=== PATIENT | female | born 1955 | race Caucasian/White ===

== ENCOUNTER → 2019-10-11 13:21 | Outpatient (CLI) | payer BC, OTHER, MEDICAID, SELFPAY ==
--- NOTE | 2019-10-11 | DI.CT.S_ITS ---
1PROCEDURE: CT CERVICAL SPINE WO CON INDICATIONS: Pseudarthrosis after fusion or arthrodesis TECHNIQUE: Noncontrast 3 mm thick sections acquired from the skull base to the T4 level. Sagittal and coronal reformats were then constructed. For radiation dose reduction, the following was used: automated exposure control, adjustment of mA and/or kV according to patient size. COMPARISON: None. FINDINGS: Image quality: Excellent. Bones: No fractures or dislocations. Visualized superior ribs are intact. Postoperative changes are seen, with anterior fixation hardware at the C3-C4 level and anterior fixation hardware at C6-C7. At the C7 level, the hardware is proud, with the left-sided screw mildly retracted. There is mild lucency seen surrounding the right C7 screw. Disc spacers are seen at C3-C4, C4-C5, C5-C6, and C6-C7. There is partial fusion of several facet joints. No acute fractures are seen. S-shaped cervicothoracic scoliotic curvature is seen. Soft tissues: Prevertebral soft tissues are normal in thickness. No paravertebral hematomas. No apical pneumothoraces. IMPRESSION: At C7, the left screw appears mildly retracted and the right screw demonstrates mild lucency surrounding it. The hardware is proud at the C7 level. The extensive hardware and fusion changes otherwise are unremarkable. Mild S-shaped cervicothoracic scoliotic curvature. Dictated by: Tereso Schneider M.D. on 10/11/2019 at 13:38 Approved by: Tereso Schneider M.D. on 10/11/2019 at 13:41
== END ==
PROVIDERS: PCP Naprapath; Referring Provider Naprapath; Visit Provider Orthopaedic Surgery
DX: M96.0 Pseudarthrosis after fusion or arthrodesis (principal)
CPT/HCPCS: 72125

== ENCOUNTER → 2019-12-12 11:59 | Outpatient (CLI) | payer BC, OTHER, MEDICAID, SELFPAY ==
[2019-12-13 09:41] LABS: COVID19 Sendout Not Detected (Not Detect)
== END ==
PROVIDERS: PCP Naprapath; Visit Provider Physician Assistant
DX: Z11.59 Encounter for screening for other viral diseases (principal)
CPT/HCPCS: 87635

== ENCOUNTER 2019-12-15 10:32 | Inpatient (IN) | payer BC, OTHER, MEDICAID, SELFPAY ==
[2019-12-13 14:01] VITALS: BMI 25.9
[2019-12-15] VITALS (21 sets, daily range): BP systolic 101–140; BP diastolic 53–86; PULSE 50–89; RESP 10–72; TEMP 35.8–36.7; O2SAT 20–99; BMI 26.0
--- NOTE | 2019-12-15 | DI.RAD.S_ITS ---
PROCEDURE: XR CERVICAL SPINE 4V OR 5V INDICATIONS: C7-T1 ACDF TECHNIQUE: Multiple intraoperative fluoroscopic views of the cervical spine acquired. COMPARISON: None. FINDINGS: Bones: Multiple intraoperative fluoroscopic views demonstrate ACDF from C7-T1. IMPRESSION: Intraoperative views of ACDF at C7-T1 Dictated by: Frances Rainey M.D. on 12/15/2019 at 16:03 Approved by: Frances Rainey M.D. on 12/15/2019 at 16:04
[2019-12-15] MEDS: LACTATED RINGERS 1,000 ML 42 ML IV ×3 (11:05→17:15)
--- NOTE | 2019-12-15 11:05 | PM.PREOP ---
Pre-operative Note COVID-19 COVID-19 status: Negative Result date/Date tested (Pos, Neg/Pending): 12/12/19 Interval Note History & Physical reviewed/Exam performed by Physician: Yes Changes to H&P: No
--- NOTE | 2019-12-15 11:35 | PM.OP.1 ---
Operative Date/Time/Diagnoses Date of procedure: 12/15/19 Time of procedure: 16:04 Pre-op diagnosis: Cervical stenosis with radiculopathy C6-7 pseudarthrosis Post-op diagnosis: same Procedure & Clinicians Procedure: C6-7 and C7-T1 left-sided foraminotomies C6-7 and C7-T1 instrumented posterior fusion C6-7 anterior plate removal C7-T1 ACDF with cage Iliac crest bone graft aspirate Use of microscope Same procedure as scheduled: Yes Indications: [age] year old female with intractable pain from stenosis and a nonunion. They had failed conservative management and requested operative intervention. Risks and benefits of surgery were discussed and appropriate consents were obtained. Surgeon: Alejandro Adams Forklift Truck Operator: Maria C Rosas Anesthesia Type: General Operative Notes Findings: None Closure Type: primary Specimen(s): none sent Prosthetic devices, grafts, tissues, transplants, or devices: [place] Cavus posterior screw/cage Lina INGE-C Applied: catheter Estimated Blood Loss (mL): 20 Procedure in detail: The patient was brought to the operating room and intubated on the stretcher. Time-out was performed. There were then rolled over to the well-padded prone position on chest rolls. Two views of fluoroscopy were taken to confirm our positioning. The neck was then prepped and draped in the standard sterile fashion. Preoperative antibiotics were given. Using fluoroscopy, we localized for planned incisions. Two small 8 mm vertical incisions were made over the lateral masses approximately 2 fingers below our planned surgical site. We then spread down and opened up the fascia. Then percutaneously placed our Steinmann pin through the soft tissue into the facet joint at C6-7 under fluoroscopic visualization. We used the reamer to decorticate the lateral masses compromising the facet. A trocar was placed over the Steinmann pin into the facet and then the pin was removed. We used a rasp to decorticate the facet joint itself. We then filled the DTrax cage with Primagen bone graft and impacted it into the facet joint at C6-7 under fluoroscopic guidance. We then took the lateral mass screw and placed it through the cage and then into the lateral mass for the posterior screw fixation. The amphibian crewmember was removed and we packed more bone graft down the trocar covering the lateral mass. This was done bilaterally. This completed the instrumented posterior fusion at C6-7. We then went to the next level at C7-T1. The same procedure was performed with preparation, placement of the cage with bone graft, and placement of the screw for bilateral instrumented posterior fusion at C7-T1. Due to the massive size of the left facet osteophytes at this level, the spacer appeared much more posterior on x-ray than the 1 on the right side but was still well within bone. We then expanded our left-sided incision to 3 cm in length. We used dilators under fluoroscopic guidance and then placed our NuVasive maxis retractor and opened it up. We placed a retractor in confirmed our positioning at C6-7. We brought in the microscope. A left-sided keyhole foraminotomy was performed at C6-7 using a combination of bur and curettes and #1 Kerrisons. We undermined the facet and lateral mass until we could easily pass a nerve hook along the nerve root and out laterally without resistance. We could directly visualize the cage and was in good lateral far mass position. This completed the foraminotomy. We then moved our retractor inferiorly to C7-T1. We directly visualized the cage and it was in a good position. We removed a large amount of the posterior facet on the medial aspect. Again we performed a keyhole foraminotomy on the left at C7-T1 until we could easily pass a nerve hook along the nerve root without resistance. The wounds were irrigated. The fascia was closed. The superficial tissue was closed and the skin was closed. Sterile dressing was placed. The patient was then rolled over to the table in the supine position and positioned for the anterior surgery. The arms were tucked and a shoulder roll was placed. The neck and left iliac crest were prepped and draped in the standard sterile fashion. Her previous right-sided incision was too high to be able to get to the lower levels the thought would be that is going on the opposite side so as not to leave a denervated space between the 2 incisions. A 3 cm oblique incision was made on the left side of the neck along the skin fold. Bovie was used to split the platysma. We then bluntly dissected a standard anterolateral approach to the precervical fascia. The old plate was used to confirm our position under fluoroscopy. We removed the old plate at C6-7 and then went down to C7-T1. We used the Bovie to the subperiosteally lift up the longus colli muscles. Self-retaining retractors were placed. We then placed [place] pins and distracted across the C7-T1 disc space. We brought in the microscope. A complete anterior discectomy was performed at C7-T1 using a combination of scalpel, curettes, pituitaries, and Kerrison rongeurs. The bur was used to take down the posterior osteophytes as well as decorticate the disc space. We then released the PLL and used the Kerrison to remove any further posterior osteophytes and disc material. At the end a nerve hook could be swept cephalad caudally and out the neural foramen and everything was open. We trialed for our cages. A small stab incision was made over the left iliac crest. We placed a Jamshidi aspiration needle into the iliac crest and aspirated several mL of bone marrow graft. We then took our Lina LDR INGE-C cage and packed it with Primagen, and mixed in the bone marrow aspirate. The cage was then placed into the disc space under fluoroscopic guidance. The 2 locking plates were placed through the cage for fixation. This completed the ACDF at C7-T1. We then cleared out the scar tissue at her pseudoarthrosis anteriorly. There appeared to still be some solid parts of cortical bone in the posterior half of the front half was all fibrous tissue and loose pieces of the cortical graft. We used a bur to decorticate the endplates. We placed more anterior bone graft at this level. Final x-rays were taken. The wound was copiously irrigated. There was no bleeding. The carotid was bleeding nicely. The platysma was closed. The superficial skin were closed. A Steri-Strip was placed over the iliac crest incision. Sterile dressings were placed. The patient was then extubated and brought to the recovery room without complication. Complications: none Post-operative Condition: stable Disposition: PACU Plan for aftercare: Inpatient overnight admission.
[2019-12-15] MEDS: CEFAZOLIN 2 GM/100 ML FROZ.PIGGY IV ×2 (12:05→19:22)
--- NOTE | 2019-12-15 13:00 | SUR.OPER ---
Prone on padded OR bed, head in foam head support, gel chest rolls, gel pad under knees, pillow under lower legs, toes free of pressure, arms secured and tucked along the body. Pt. taped from shoulders to bed by surgeon. Safety belt at thigh.
--- NOTE | 2019-12-15 13:03 | SUR.OPER ---
Supine on padded OR bed, head on pillow, arm padded and tucked at side, legs uncrossed, safety belt at thigh, tape over blanket over lower legs .
[2019-12-15] MEDS: BUPIVACAINE 0.5% W/ EPI (PF) 30 ML VIAL INJ (13:20)
[2019-12-15] MEDS: SODIUM CHLORIDE 0.9% 1,000 ML, GENTAMICIN 80 MG IRR (13:22)
[2019-12-15] MEDS: THROMBIN (RECOMBINANT) 5,000 UNIT VIAL 5000 UNIT TOP (13:22)
[2019-12-15] MEDS: ACETAMINOPHEN IV 1,000 MG/100 ML VIAL 400 MG IV (14:50)
[2019-12-15] MEDS: fentaNYL 100 MCG/2 ML INJ IV ×3 (16:25→16:36)
[2019-12-15] MEDS: ONDANSETRON 4 MG/2 ML INJ IV (16:54)
[2019-12-15] MEDS: HYDROMORPHONE 2 MG INJ IV (16:54)
[2019-12-15] MEDS: hydrOXYzine 50 MG/ML INJ 25 MG IM (16:54)
--- NOTE | 2019-12-15 17:10 | SUR.PHASEI ---
Patient states that her right arm is numb but after further investigation, patient has full sensation in both upper extremities. Patient has strong radial pulses but weak geographic information systems manager bilaterally.
--- NOTE | 2019-12-15 17:26 | SUR.PHASEI ---
Assumed care back from Richa, medicated with percolone after applesauce tolerated.
[2019-12-15] MEDS: OXYCODONE IR 5 MG TABLET PO (17:27)
--- NOTE | 2019-12-15 17:58 | SUR.PHASEI ---
Pt transported up to room 222, bed down, locked and SCD's on. Left with Stephanie in stable condition.
[2019-12-15] MEDS: LACTATED RINGERS 1,000 ML 125 ML IV (18:09)
[2019-12-15] MEDS: BENZOCAINE/MENTHOL 1 LOZ PKT 1 EACH PO (18:13)
[2019-12-15] MEDS: CELECOXIB 200 MG CAPSULE 400 MG PO (18:13)
[2019-12-15] MEDS: DEXAMETHASONE 4 MG/ML VIAL IV ×2 (18:13→23:55)
[2019-12-15] MEDS: HYDROCODONE/ACET 5/325 TABLET 1 TAB PO (19:21)
[2019-12-15] MEDS: GABAPENTIN 300 MG CAPSULE PO (20:40)
[2019-12-15] MEDS: SENNOSIDES 8.6 MG TABLET 17.2 MG PO (20:40)
[2019-12-15] MEDS: DOCUSATE 100 MG CAPSULE PO (20:40)
[2019-12-15] MEDS: CELECOXIB 200 MG CAPSULE PO (20:40)
--- NOTE | 2019-12-15 22:01 | PC.NURSE ---
1800 Pt admitted to 222 in bed from PACU. AAOx4, ZULAY. Neuro assessment done, pt complains of some numbness and tingling of both hands, sensitive to light touch and temperature. All pulses equal and strong. equal bilateral hand grasps. Soft collar in place, incisions to ant and post nect dry and intact, l Hip dressing dry and intact. IV of LR infusing at 125/hr. Taking liquids easily, no difficulty swallowing. Denies nausea so general diet offered. Oriented to environment and instructed to call for assistance if needed.
[2019-12-15] MEDS: HYDROCODONE/ACET 5/325 TABLET 2 TAB PO (23:52)
[2019-12-16 00:24] VITALS: BP 102/62; PULSE 75; RESP 16; TEMP 36; O2SAT 95
[2019-12-16] MEDS: HYDROMORPHONE 0.5 MG INJ IV (00:56)
[2019-12-16] MEDS: LACTATED RINGERS 1,000 ML 125 ML IV (02:52)
[2019-12-16 03:30] VITALS: BP 90/53; PULSE 57; RESP 16; TEMP 36.1; O2SAT 94
[2019-12-16] MEDS: CEFAZOLIN 2 GM/100 ML FROZ.PIGGY IV (04:12)
[2019-12-16] MEDS: HYDROCODONE/ACET 5/325 TABLET 2 TAB PO ×3 (04:14→12:22)
[2019-12-16] MEDS: DEXAMETHASONE 4 MG/ML VIAL IV ×2 (06:23→11:46)
[2019-12-16 08:57] VITALS: BP 91/56; PULSE 72; RESP 16; TEMP 36.4; O2SAT 96
--- NOTE | 2019-12-16 09:18 | PM.PNPO.1 ---
Subjective Subjective Date Patient Seen: 12/16/19 Time Patient Seen: 09:18 Interval history: She is doing great. Little bit of achiness in the right forearm. Neck feels good. Left are much better. Exam Vital Signs (past 8 hours): - 12/16/19 03:30 12/16/19 08:57 Temperature 96.9 F L 97.6 F Pulse Rate 57 L 72 Respiratory Rate 16 16 Blood Pressure 90/53 L 91/56 L Pulse Oximetry 94 96 Oxygen Delivery Method Room Air Oxygen Flow Rate 0 Const Orientation: alert and oriented x3 Other: CDI. 5/5 motor both upper extremities except 4/5 bilateral supervisor tumbling and rolling Assessment & Plan Post-op Postoperative Procedures: Procedures Operation Date: 12/15/19 12:15 Actual Procedures Side Surgeon p C7T1 anterior cervical discectomy & fusion, removal old C67 plate, C6-T1 left foraminotomies & posterior instrumented fusion w. bone graft Alejandro Adams MD She is doing very well. Discharge home today.
--- NOTE | 2019-12-16 09:19 | CM.DANOTE ---
DCP: Case received, EMR reviewed and met with patient. Introduced self and role. Was able to obtain information from patient regarding her baseline activity status prior to surgery. DCP assessment completed with information currently available. Patient is a 64 year old female who admitted yesterday morning to the care of the orthopedic team. PCP: Dr. Garcia. Payer: confirmed: [facility] Out of [facility]. Patient came to the hospital via private vehicle for a surgical procedure. She had C6-7, C7-T1 posterior fusion. Patient has had history of cervical stenosis, and started having neck problems when she sustained an accident at the age of 17. Met with patient in her room. She is alert and oriented, pleasant. She was sitting up in bed. Patient stated, she has had several surgeries, this isn't her first. She stated that when she was 17, she was on a horse, and got bucked off, is when the injury occurred. She is independent at baseline, and resides in [place] with her spouse, Carlos. P: DCP to continue to follow. She will be working with P.T/O.T. She should be able to go home when she is medically stable. Brook Echevarria RN/Faculty Instructor
--- NOTE | 2019-12-16 09:30 | PT.IIE ---
Current Diagnoses Spinal stenosis, cervical region (12/15/19) Pseudarthrosis after fusion or arthrodesis (12/15/19) Arthrodesis status (12/15/19) Surgery Performed Operation Date: 12/15/19 12:15 Actual Procedures p C7T1 anterior cervical discectomy & fusion, removal old C67 plate, C6-T1 left foraminotomies & posterior instrumented fusion w. bone graft - Alejandro Adams MD Surgical History (Last Updated 12/13/19 @ 14:16 by Edna Gan RN) History of colonoscopy (Acute) History of facelift (Acute ~2011) History of hysterectomy (Acute ~2006) History of surgery (Acute ~2011) Hx of cholecystectomy (Acute) Hx of dilation and curettage (Acute) Hx of fusion of cervical spine (Acute ~2005) S/P cervical spinal fusion (Acute ~1995) Medical History (Last Updated 12/13/19 @ 14:21 by Edna Gan RN) Elevated cholesterol (Acute) Rectocele (Acute) Physical Therapy Inpatient Evaluation/Re-Eval M1 PT/OT-IP Prior Functional Status Start: 12/16/19 13:10 Freq: NEEDED Status: Active Protocol: Document 12/16/19 13:11 CGR (Rec: 12/16/19 13:19 CGR [id number]) Medical Review Prior Functional Status Medical History Reviewed Yes Communication Pt is an effective verbal communicator. Mobility and Gait Pt was IND Activities of Daily Living and IADL's Pt was IND for ADLs and IADLS Social History Household Members spouse Living Arrangements House Number of Floors (Floors) Two Floors Number of Stairs To Enter/Railing? No steps to enter but 12 steps without formal rail to second floor. 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 M1 PT/OT-IP Prior Functional Status Start: 12/16/19 14:08 Freq: NEEDED Status: Active Protocol: Document 12/16/19 09:30 AB (Rec: 12/16/19 14:40 AB [id number]) Medical Review Prior Functional Status Medical History Reviewed Yes Communication able to make needs known Mobility and Gait pt stated that she is independent with all mobilities and ambulation without AD Social History Household Members spouse Living Arrangements House Number of Floors (Floors) Two Floors Number of Stairs To Enter/Railing? 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 M2 PT-IP Current Condition Start: 12/16/19 14:08 Freq: NEEDED Status: Active Protocol: Document 12/16/19 09:30 AB (Rec: 12/16/19 14:40 AB [id number]) Physical Therapy Current Condition Current Condition Evaluation Date 12/16/19 Treatment Diagnosis s/p C6-7 ant fusion; C7T1 ACDF ; difficulty in walking Onset Date 12/15/19 Precautions Cervical Spine Precautions Soft Collar for Comfort,No Heavy Lifting,Log Roll M3 PT-IP Subjective Start: 12/16/19 14:08 Freq: NEEDED Status: Active Protocol: Document 12/16/19 09:30 AB (Rec: 12/16/19 14:40 AB [id number]) Subjective Physical Therapy Visit Type Type Initial Evaluation Visit Start Time 09:30 Visit Stop Time 10:21 Total Visit Minutes 51 Number of BODY SHOP MECHANIC Visits 0 Physical Therapy Visit Comments Patient Comments agreeable to do PT Therapy Pain Assessment Pain When Pain Assessed At Rest Pain Present Pain Present Pain Reported Location Right Shoulder Intensity 6 Scale Used Numeric (0 - 10) Pain Management Techniques Distraction,Re-positioning, Timing of Activity with Medications M4 PT-IP Mobility and Gait Start: 12/16/19 14:08 Freq: NEEDED Status: Active Protocol: Document 12/16/19 09:30 AB (Rec: 12/16/19 14:40 AB [id number]) PT-Bed Mobility Assessment Rolling Type of Rolling Log Rolling Level of Assist Standby Assistance Supine to Sit Supine to Sit Standby Assistance Sit to Supine Sit to Supine Standby Assistance PT-Transfer Assessment Sit to and From Stand Sit to and from Stand Standby Assistance Equipment Transfer Assistive Device None,Gait Belt Orthotic/Prosthetic Devices or Brace: Yes Comments Mobility Comments reviewed cervical precautions and log roll bed mobility. pt completed supine to sit SBA . ambulated in hallway without AD SBA ~ 300 ft. completed up/down steps using L rail SBA. ambulated back to her room SBA. requested to go back to bed and completed sit to supine SBA. set up table and call light next to pt. Gait Assessment Gait Gait Assistance Required: Standby Assistance Distance (Feet) 300 Able to Maintain Weight Bearing Status Yes During Gait Assistive Devices Assistive Device None,Gait Belt Orthotic/Prosthetic Devices or Brace: Yes Gait Deviations General Gait Pattern Antalgic Factors Limiting Gait Function Factors Limiting Gait Function Decreased Activity Tolerance, Decreased Strength,Limited Range of Motion,Pain,Poor Balance Stair Climbing Assessment Evaluation Level of Assist On Stairs Standby Assistance Devices Stair Climbing Assistive Devices Left Railing Technique/Endurance Stair Climbing Direction Ascend and Descend Stair Climbing Technique Step to Step Number of Steps Climbed 3 Query Text: Stair Climbing Set # Repetitions (reps) 2 PT-Balance Assessment Sitting Balance and Reactions Static Sitting Balance Ability Normal Dynamic Sitting Balance Ability Normal Standing Balance and Reactions Static Standing Balance Ability Good Dynamic Standing Balance Ability Fair Device Used without AD M5 PT-IP Objective Assessments Start: 12/16/19 14:08 Freq: NEEDED Status: Active Protocol: Document 12/16/19 09:30 AB (Rec: 12/16/19 14:40 AB [id number]) Orientation Orientation/Cognition Level of Alertness Alert Orientation Name,Age,Birthday,Month,Date, Year,Day of Week,Place, Situation Language Function Ability No Deficits Noted Safety Awareness Understands Safety Issues Memory Description No Deficits Noted Gross Range of Motion Lower Extremity ROM Assessment Within Functional Limits Strength Lower Extremity Strength Assessment Within Functional Limits Coordination Assessment Gross Coordination Gross Coordination WNL Sensation Assessment Sensation Light Touch Impaired Sensation Description Numbness,Tingling Comments Sensation Comments c/o BUE numbness L>R Muscle Tone Muscle Tone WNL Yes M6 PT-IP Treatment Start: 12/16/19 14:08 Freq: NEEDED Status: Active Protocol: Document 12/16/19 09:30 AB (Rec: 12/16/19 14:40 AB [id number]) Physical Therapy Treatment Education Education Provided Precautions,Weight Bearing Status,Post-Op Packet,Safety M7 PT-IP Assessment and Plan Start: 12/16/19 14:08 Freq: NEEDED Status: Active Protocol: Document 12/16/19 09:30 AB (Rec: 12/16/19 14:40 AB [id number]) PT Summary Assessment and Plan Potential Rehabilitation Potential Good Status of Condition at Evaluation Stable Summary Impairments Pain,ROM,Strength,Balance, Coordination,Sensation,Bed Mobility,Transfers,Gait, Activity Tolerance Progress Towards Goals Safe For Discharge Assessment Summary pt requiring SBA with mobility and plans to go home today. pt may go home when stable. Goals Bed Mobility Goal Independent Transfer Goal Independent Gait Goal Independent Gait Distance 350 Other Goals up/down 15 steps L rail mod I Days to Meet Goals 3 Frequency of Treatment Frequency Of Treatment Twice a Day Treatment Plan Physical Therapy Treatment Plan Bed Mobility Training,Transfer Training,Gait Training, Therapeutic Exercise,Balance Retraining,Post Op Education, Discharge Planning,Hot or Cold Pack,Neuromuscular Re-ed, Coordination Retraining,Manual Therapy Recommendations To Nursing Amount of Assist Needed Standby Assistance Discharge Recommendations PT Discharge Recommendations Home with Assistance Transportation Needs at Discharge Private Vehicle
[2019-12-16] MEDS: CELECOXIB 200 MG CAPSULE PO (09:48)
[2019-12-16] MEDS: DOCUSATE 100 MG CAPSULE PO (09:48)
--- NOTE | 2019-12-16 10:47 | PC.NURSE ---
Addendum entered by Abimbola Cook R.N. 12/16/19 12:48: Discharge home: IV dc'd intact after last dose IV steroid. Reviewed all d/c instructions with patient and spouse and they verbalized understanding. Patient was able to void prior to leaving and denied any post-void urgency. Medicated with 2 tabs Vicodin ahead of ride home (for /10 neck/R shoulder pain). Patient aware that she should have 4 scripts at her [place] pharmacy to fruit picker on the way home. She will call office Wednesday to see about follow up appt. All personal belongings collected and sent with patient at discharge. Wheeled out to private vehicle by nursing staff. Original Note: Steroids at discharge: This job specification writer spoke with patient re: d/c plan. Patient stated just make sure Dr Adams is sending me with a prescription for steroids, they really help with the pain. This job specification writer looked at d/c orders, and there was no order for oral steroids. This job specification writer called and spoke with Dr Adams who will be calling a script in to her pharmacy. Will inform patient of the same, and to take as directed on the bottle. Patient just finished ambulating halls with PT and is working with OT at this time.
--- NOTE | 2019-12-16 10:52 | OT.IP.EVAL ---
Current Diagnoses Spinal stenosis, cervical region (12/15/19) Pseudarthrosis after fusion or arthrodesis (12/15/19) Arthrodesis status (12/15/19) Surgery Performed Operation Date: 12/15/19 12:15 Actual Procedures p C7T1 anterior cervical discectomy & fusion, removal old C67 plate, C6-T1 left foraminotomies & posterior instrumented fusion w. bone graft - Alejandro Adams MD Past Medical History (Last Updated 12/13/19 @ 14:21 by Edna Gan RN) Elevated cholesterol (Acute) Rectocele (Acute) Surgical History (Last Updated 12/13/19 @ 14:16 by Edna Gan RN) History of colonoscopy (Acute) History of facelift (Acute ~2011) History of hysterectomy (Acute ~2006) History of surgery (Acute ~2011) Hx of cholecystectomy (Acute) Hx of dilation and curettage (Acute) Hx of fusion of cervical spine (Acute ~2005) S/P cervical spinal fusion (Acute ~1995) Occupational Therapy Inpatient Evaluation/Re-Eval M1 PT/OT-IP Prior Functional Status Start: 12/16/19 13:10 Freq: NEEDED Status: Active Protocol: Document 12/16/19 13:11 CGR (Rec: 12/16/19 13:19 CGR [email or web address]) Medical Review Prior Functional Status Medical History Reviewed Yes Communication Pt is an effective verbal communicator. Mobility and Gait Pt was IND Activities of Daily Living and IADL's Pt was IND for ADLs and IADLS Social History Household Members spouse Living Arrangements House Number of Floors (Floors) Two Floors Number of Stairs To Enter/Railing? No steps to enter but 12 steps without formal rail to second floor. 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 M2 OT-IP Current Condition Start: 12/16/19 13:10 Freq: Status: Active Protocol: Document 12/16/19 13:11 CGR (Rec: 12/16/19 13:19 CGR [email or web address]) Occupational Therapy Current Condition Current Condition Evaluation Date 12/16/19 Treatment Diagnosis c6-T1 ACDF Diagnosis Onset Date 12/15/19 Post Operative Precautions Cervical Spine Precautions Soft Collar for Comfort,No Heavy Lifting,Log Roll M3 OT- IP Subjective and Pain Start: 12/16/19 13:10 Freq: Status: Active Protocol: Document 12/16/19 13:11 CGR (Rec: 12/16/19 13:19 CGR [email or web address]) OT- Subjective Occupational Therapy Visit Type Type Initial Evaluation Visit Start Time 10:19 Visit Stop Time 10:52 Total Visit Minutes 33 Notes Pt just completed P.T. OT Pain Assessment Pain When Pain Assessed At Rest Pain Present Pain Present Pain Reported Location Right Shoulder Intensity 5 Scale Used Numeric (0 - 10) Management Techniques Distraction,Modification of Treatment,Re-positioning M4 OT- IP ADL's Start: 12/16/19 13:10 Freq: Status: Active Protocol: Document 12/16/19 13:11 CGR (Rec: 12/16/19 13:19 CGR [email or web address]) OT [id number] Comments OT Self-Feeding Comments Not meal time OT ADL-Grooming General Evaluation Grooming Ability Independent Areas Needing Assistance Face Washing Comments OT Grooming Comments standign at sink OT ADL-Oral Care General Eval Oral Care Ability Independent Areas of Assistance Brushing Teeth Comments Oral Care Comments standing at sink OT ADL-Dressing General Eval Lower Body Dressing Ability Independent Comments OT Dressing Comments seated EOB. Pt educated on safety with LB dressing. OT ADL-Toileting General Evaluation Toileting Ability Independent Comments OT Toileting Comments Pt demonstrated ability to get on and off toielt and simulated toileting seated on toilet. Pt still with fitch at time of eval. OT ADL-Bathing Comments OT Bathing Comments not performed M5 OT- IP IADL's Start: 12/16/19 13:10 Freq: Status: Active Protocol: Document 12/16/19 13:11 CGR (Rec: 12/16/19 13:19 CGR [email or web address]) OT-Instrumental Activities of Daily Living Deficits IADL Deficits Identified No Deficits Home Safety Awareness Awareness of Need for Assistance at Home Good Awareness Ability to Problem Solve Emergency Able to Problem Solve Situations Medication Management Medication Management No Deficits Identified Money Management Money Management No Deficits Identified Meal Preparation Meal Preparation No Deficits Identified 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 M6 OT- IP Functional Cognition Start: 12/16/19 13:10 Freq: Status: Active Protocol: Document 12/16/19 13:11 CGR (Rec: 12/16/19 13:19 CGR [email or web address]) Cognitive Factors Limiting Selfcare Function Cognitive Ability Level of Alertness Alert Patient Orientation Name,Age,Birthday,Month,Date, Year,Day of Week,Place, Situation Attention Span Ability Capable of Focused Attention, Capable of Sustained Attention Ability to Follow Commands Able to Follow Multi-Step Commands Memory Description No Deficits Noted Safety Awareness No Deficits Noted Problem Solving Ability No deficits Noted Executive Function Ability No Deficits Noted Abstract Thinking Ability No Deficits Noted OT- Vision and Hearing OT- Hearing Assessment OT- Hearing Assessment WFL OT- Vision Assessment Visual Acuity WFL Visual Attentiveness WFL Occular Pursuits WFL Visual Convergence WFL M7 OT- IP Mobility and Balance Start: 12/16/19 13:10 Freq: Status: Active Protocol: Document 12/16/19 13:11 CGR (Rec: 12/16/19 13:19 CGR [email or web address]) OT- Bed Mobility Assessment Rolling Type of Rolling Roll to Left Level of Assistance Independent Supine to Sit Supine to Sit Assist Independent Scooting Scooting to Edge of Bed Independent OT-Transfer Assessment Sit to and From Stand Sit to and from Stand Standby Assistance Transfers Transfer Ability Standby Assistance Technique Transfer Destination Bed,Chair,Toilet Transfer Technique Stand Step Pivot Devices Transfer Assistive Devices Gait Belt OT- Balance Assessment Sitting Balance and Reactions Static Sitting Balance Ability Normal Dynamic Sitting Balance Ability Good M8 OT- IP Objective Assessments Start: 12/16/19 13:10 Freq: Status: Active Protocol: Document 12/16/19 13:11 CGR (Rec: 12/16/19 13:19 CGR [email or web address]) OT Gross Range of Motion Upper Extremity Range of Motion Assessment Within Functional Limits OT Strength Upper Extremity Strength Assessment Within Functional Limits OT- Coordination Assessment Upper Extremity Finger to Nose Test Within Functional Limits Finger Tapping Test Within Functional Limits OT Sensation Assessment Comments Summary Comments Pt reports numbness to the R pointer and middle fingers. Edema Edema Absent M9 OT- IP Assessment and Plan Start: 12/16/19 13:10 Freq: Status: Active Protocol: Document 12/16/19 13:11 CGR (Rec: 12/16/19 13:19 CGR [email or web address]) OT Summary Assessment and Plan Potential Rehabilitation Potential Excellent Analytic Complexity at Evaluation Low Summary OT Impairments Pain,Sensation Progress Towards Goals Progressing Toward Goals,Safe For Discharge Assessment Summary Pt presents s/p c6-T1 ACDF and is at or close to her baseline. No further OT needs. Frequency of Treatment Frequency Of Treatment Discharge Discharge Recommendations OT Discharge Recommendations Home Transportation Needs at Discharge Private Vehicle
[2019-12-16] MEDS: SODIUM CHLORIDE 0.9% FLUSH 10 ML IV (11:46)
== END 2019-12-16 12:51 | disposition home or self-care (01) | DRG 472 ==
PROVIDERS: Admitting Provider Orthopaedic Surgery; PCP Naprapath; Referring Provider Naprapath; Visit Provider Orthopaedic Surgery
PROC: 0RG40A0 Fusion of Cervicothoracic Vertebral Joint with Interbody Fusion Device, Anterior Approach, Anterior Column, Open Approach (ICD-10-PCS; principal; 2019-12-15 12:15)
DX: M48.02 Spinal stenosis, cervical region (principal); M96.0 Pseudarthrosis after fusion or arthrodesis; M54.12 Radiculopathy, cervical region; Z87.891 Personal history of nicotine dependence
CPT/HCPCS: 72050; 76000; 97116; 97161; 97165; 97535; C1776; J0131; J0690; J1100; J1170; J2250; J2405; J2704; J3010; J3410